=== PATIENT | female | born 2000 | race Caucasian/White ===

== ENCOUNTER → 2018-05-05 | Outpatient (CLI) | payer OTHER ==
[~2018-05-05] MED LIST: BENTYL20 MG PO; SPRINTEC1 EACH PO
[2018-05-05 16:04] LABS: ABSOLUTE EOSINOPHILS 0.1 thou/uL (0.0-0.7); ABSOLUTE LYMPHOCYTES 2.2 thou/uL (0.8-5.3); ABSOLUTE MONOCYTES 0.3 thou/uL (0.0-1.2); ABSOLUTE NEUTROPHILS 5.5 thou/uL (1.6-8.1); BASOPHILS 0.4 %; EOSINOPHILS 1.4 %; HEMATOCRIT 41.7 % (37.0-47.0); HEMOGLOBIN 14.1 gm/dL (12.0-15.0); LYMPHOCYTES 26.8 %; MCH 30.1 pg (26.0-34.0); MCHC 33.8 g/dL (28.0-37.0); MCV 88.9 fL (80.0-100.0); MONOCYTES 4.1 %; MPV 6.9 fl. (7.2-11.1); NUCLEATED RBCS 0 /100WBC; PLATELET COUNT* 413 thou/uL (150-400); POLYS 67.3 %; RBC 4.69 mil/uL (4.20-5.00); RDW-CV 13.1 % (10.5-14.5); WBC 8.2 thou/uL (4.0-11.0)
== END ==
LOC: M.LAB 15:47
PROVIDERS: Family Medicine
DX: N94.6 Dysmenorrhea, unspecified (principal)

== ENCOUNTER → 2018-05-09 | Outpatient (CLI) | payer OTHER | LOC: M.ULTRA 09:00 | DX: N93.8 Other specified abnormal uterine and vaginal bleeding (principal); N94.6 Dysmenorrhea, unspecified ==

== ENCOUNTER → 2018-07-14 | Outpatient (CLI) | payer OTHER | LOC: M.ULTRA 09:14 | DX: N92.0 Excessive and frequent menstruation with regular cycle (principal); R10.2 Pelvic and perineal pain ==